=== PATIENT | female | born 2000 | race Caucasian/White ===

== ENCOUNTER 2023-10-02 01:49 | Emergency (ER) | payer OTHER, SELFPAY ==
[2023-10-02 02:03] VITALS: BP 136/81; BP 142/84; PULSE 116; PULSE 127; RESP 12; TEMP 36.4; O2SAT 100; O2SAT 96; BMI 32.9
--- NOTE | 2023-10-02 02:17 | PC.NURSE ---
hx of seizures/epilepsy. last episode was 1 week ago. not on medication currently. VSS at this time. pt reports feeling tired and shaky. worried she will have a seizure. pads placed on the bed for precaution.
[2023-10-02 02:34] VITALS: BP 136/81; PULSE 127; RESP 12; TEMP 36.4; O2SAT 96
--- NOTE | 2023-10-02 02:36 | ED_ITS ---
HPI - General Adult General Chief complaint: ETOH/Substance Use Stated complaint: Drug Use Time Seen by Provider: 10/02/23 02:30 Source: patient Mode of arrival: EMS Limitations: no limitations History of Present Illness HPI narrative: Patient comes to the emergency room complaining of feeling strange. Patient states that she was a smoking marijuana, states that she believes that her marijuana was laced with something. Patient was not given any Narcan. Patient feeling nauseous. Patient denies losing consciousness, no falls, no vomiting or diarrhea. Patient has history of seizures, last seizure 1 week ago. Patient is not sure if she had a seizure today. Patient is not on any medications for seizures. Related Data Allergies Allergy/AdvReac Type Severity Reaction Status Date / Time No Known Allergies Allergy Unverified 08/17/20 17:00 [No Known Allergies*] Review of Systems 2 Review of Systems: Constitutional : No Weight loss, No Fever, No Chills, No Night Sweats, No Fatigue, No Malaise ENT/Mouth : No Hearing loss, No Ear Pain, No Nasal Congestion, No Sinus Pain, No Hoarseness, No sore throat, No Rhinorrhea, No Swallowing Difficulty Eyes: No Eye Pain, No Swelling, No Redness, No Foreign Body, No Discharge, No Vision Changes Cardiovascular : No Chest Pain, No SOB, No Dyspnea on Exertion, No Orthopnea, No Edema, No Palpitations Respiratory : No Cough, No Sputum, No Wheezing, No Smoke Exposure, No Dyspnea Gastrointestinal : No Nausea, No Vomiting, No Diarrhea, No Constipation, No abdominal Pain, No Hematochezia, No Melena Genitourinary : no irregular bleeding, No Dysuria, No Urinary Frequency, No Hematuria, No Urinary Incontinence, No Urgency, No Flank Pain, No Urinary Flow Changes, No Hesitancy Musculoskeletal : No joint pain, No Myalgias, No Joint Swelling Skin : No Skin Lesions, No rash Neuro : No Weakness, No Numbness, No Paresthesias, No Loss of Consciousness, No Dizziness, No Headache Psych : No Anxiety/Panic, No Depression, No SI/HI/AH/VH, admits to smoking marijuana, states that she may have he smoked placed THC Heme/Lymph: No Bruising, No Bleeding,No Lymphadenopathy Endocrine : No Polyuria, No Polydipsia, No Temperature Intolerance [facility], [facility] Past Medical History Medical History (Updated 10/02/23 @ 04:25 by Vanesa Izquierdo MD) Epilepsy Social History Social History Alcohol intake: current Alcohol intake frequency: a few times a month Smoked in Last 30 Days: Yes Use of substances other than those prescribed or required for medical reasons: Yes Substance Use Type: Crack/Cocaine and Marijuana Substance Use Frequency: Daily Last Used Substance: Hours (ago) Advance Directives: No Advance Directives Information Provided: Yes Physical Exam ED Vital Signs: Vital Signs - 24 hr 10/02/23 02:03 10/02/23 02:34 Temperature 97.5 F 97.5 F Pulse Rate 127 H 127 H Respiratory Rate 12 12 Blood Pressure 136/81 136/81 Pulse Oximetry 96 96 Oxygen Delivery Method Room Air Room Air BMI result Body Mass Index 32.9 Const Other: Appearance: Alert. Somnolent, easily arousable, coherent, No acute distress. Eyes: Pupils equal, round and reactive to light. ENT: Pharynx normal. Neck: Normal inspection. Neck supple. No lymph nodes noted. No crepitus CVS: Normal heart rate and rhythm. Pulses normal. Normal S1 and S2 Respiratory: No respiratory distress. Breath sounds normal. No Wheezing. No rales Abdomen: Soft and nontender. No rigidity. No distention. Skin: Skin warm and dry. Normal skin color. Normal skin turgor. Extremities: No lower extremity edema. No Lacerations. No Rash Neuro: Somnolent, cranial nerves 2-12 grossly intact. Psych: calm, cooperative, normal affect Course Course Course Narrative: -is possible that the patient may have smoked laced THC vs had a seizure? Labs pending -patient stable, vital stable Medications Administered Discontinued Medications Generic Name Dose Route Start Last Admin Trade Name Neelam PRN Reason Stop Dose Admin Ondansetron HCl 4 mg 10/02/23 02:39 10/02/23 02:57 Ondansetron Odt 4 Mg Tab.Rapdis TRANSLINGU 10/02/23 02:40 4 mg ONCE ONE Administration Medical Decision Making Medical Decision Making [facility] Narrative: -my interpretation of labs, elevated white blood cell count, likely reactive leukocytosis. Chemistry within normal limits, lactic acid normal. Urine test negative, toxicology positive for opiates, fentanyl, cocaine and marijuana. -patient is awake, alert and oriented x3. Patient requesting to be discharged. Discussed with the patient to follow-up with her neurologist. Differential Diagnosis Differential Diagnoses: The differential diagnosis associated with the presentation includes (Seizure, accidental overdose, polysubstance abuse) Lab Data MDM Lab Attestation statement: I reviewed the patient's lab results. 10/02/23 02:52 10/02/23 02:52 Labs: Lab Results 10/02/23 10/02/23 Range/Units 02:52 03:57 WBC 18.5 H (4.8-10.8) X10*3/uL RBC 4.33 (4.20-5.50) X10*6/uL Hgb 12.1 (12.0-16.0) g/dl Hct 36.8 L (37.0-47.0) % MCV 85.0 (80.0-98.0) fL MCH 27.9 (27.0-33.0) pg MCHC 32.9 (31.0-35.0) g/dl RDW 13.2 (11.0-16.0) % Plt Count 446 H (160-400) X10*3/uL MPV 9.8 (9.4-12.3) fL Immature Gran % (Auto) 0.4 (0.0-0.4) % Neut % (Auto) 88.6 H (45-73) % Lymph % (Auto) 5.3 L (20-40) % [place] % (Auto) 5.2 (2-11) % Eos % (Auto) 0.2 (0-4) % Baso % (Auto) 0.3 (0-2) % Lymph # (Auto) 1.0 L (1.2-4.9) X10*3/uL [place] # (Auto) 1.0 (0.1-1.2) X10*3/uL Eos # (Auto) 0.0 (0.0-0.4) X10*3/uL Baso # (Auto) 0.1 (0.0-0.2) X10*3/uL Abs Immat Gran (auto) 0.08 H (0.00-0.03) X10*3/uL Absolute Neuts (auto) 16.4 H (2.0-8.3) x10*3/uL Absolute Nucleated RBC 0.000 (0.0-0.012) X10*3/uL Nucleated RBC % (auto) 0.0 (0.0-0.2) /100WBC Sodium 135 (135-145) mmol/L Potassium 3.7 (3.3-5.1) mmol/L Chloride 101 (96-108) mmol/L Carbon Dioxide 24 (22-29) mmol/L Anion Gap 14 (12-20) BUN 11 (9-16) mg/dL Creatinine 0.77 (0.5-1.4) mg/dL Estim Creat Clear Calc 114.4 Estimated GFR > 60 Random Glucose 170 H (60-115) mg/dL Lactic Acid 0.8 (0.5-2.0) mmol/L Calcium 9.1 (8.4-10.2) mg/dL Total Bilirubin 0.2 (0.0-1.0) mg/dL Direct Bilirubin 0.2 (0.0-0.5) mg/dL AST 18 (5-31) U/L ALT 9 (0-31) U/L Alkaline Phosphatase 88 (39-117) U/L Total Protein 7.9 (6.5-8.0) g/dL Albumin 4.2 (3.5-5.0) g/dL Urine Test NEGATIVE (NEGATIVE) Urine Opiates Screen POSITIVE H (Not Detect) Urine Fentanyl Screen POSITIVE H (Not Detect) Ur Barbiturates Screen Not Detected (Not Detect) Ur Phencyclidine Scrn Not Detected (Not Detect) Ur Amphetamines Screen Not Detected (Not Detect) U Benzodiazepines Scrn Not Detected (Not Detect) Urine Cocaine Screen POSITIVE H (Not Detect) U Marijuana (THC) Screen POSITIVE H (Not Detect) Discharge Plan Discharge Clinical Impression: Polysubstance abuse Patient Disposition: Home, Self-Care Instructions: Polysubstance Abuse (ED) Additional Instructions: Please follow-up with your primary care physician tomorrow. If you have any worsening or new symptoms, please return to the emergency room or call 911
[2023-10-02 02:56] LABS: MANUAL DIFF FLAG NO
[2023-10-02] MEDS: Ondansetron ODT 4 MG TAB.RAPDIS TRANSLINGU (02:57)
[2023-10-02 02:58] LABS: Basophils Absolute Auto 0.1 X10*3/uL (0.0-0.2); Basophils Percent Auto 0.3 % (0-2); Eosinophils Percent Auto 0.2 % (0-4); Hematocrit 36.8 % (37.0-47.0); Hemoglobin 12.1 g/dl (12.0-16.0); Imm Gran Abs Auto 0.08 X10*3/uL (0.00-0.03); Imm Gran Pct Auto 0.4 % (0.0-0.4); Lymphocytes Percent Auto 5.3 % (20-40); Mean Corpuscular HGB Conc 32.9 g/dl (31.0-35.0); Mean Corpuscular Hemoglobin 27.9 pg (27.0-33.0); Mean Platelet Volume 9.8 fL (9.4-12.3); Monocytes Percent Auto 5.2 % (2-11); Neutrophils Absolute Auto 16.4 x10*3/uL (2.0-8.3); Neutrophils Percent Auto 88.6 % (45-73); Platelet Count 446 X10*3/uL (160-400); Red Blood Count 4.33 X10*6/uL (4.20-5.50); Red Cell Distribution Width 13.2 % (11.0-16.0); White Blood Count 18.5 X10*3/uL (4.8-10.8)
[2023-10-02 03:06] LABS: Lactic Acid 0.8 mmol/L (0.5-2.0)
[2023-10-02 03:11] LABS: Alanine Aminotransferase 9 U/L (0-31); Albumin Level 4.2 g/dL (3.5-5.0); Alkaline Phosphatase 88 U/L (39-117); Anion Gap 14 (12-20); Aspartate Amino Transferase 18 U/L (5-31); Bilirubin Direct 0.2 mg/dL (0.0-0.5); Bilirubin Total 0.2 mg/dL (0.0-1.0); Blood Urea Nitrogen 11 mg/dL (9-16); Calcium 9.1 mg/dL (8.4-10.2); Carbon Dioxide 24 mmol/L (22-29); Chloride 101 mmol/L (96-108); Creatinine Clr Calc Pharmacy 114.4; Estimated Glomerular Filt Rate > 60; Glucose Random 170 mg/dL (60-115); Potassium 3.7 mmol/L (3.3-5.1); Sodium 135 mmol/L (135-145); Total Protein 7.9 g/dL (6.5-8.0)
[2023-10-02 04:08] LABS: UPreg QC Valid YES; Urine Pregnancy NEGATIVE (NEGATIVE)
[2023-10-02 04:12] LABS: Amphetamine Screen Urine Not Detected (Not Detect); Barbiturates, Urine Not Detected (Not Detect); Benzodiazepines Screen Urine Not Detected (Not Detect); Cannabinoid Screen Urine POSITIVE (Not Detect); Cocaine Screen Urine POSITIVE (Not Detect); Fentanyl, urine POSITIVE (Not Detect); Opiate Screen Urine POSITIVE (Not Detect); Phencyclidine Screen Urine Not Detected (Not Detect)
[2023-10-02 04:34] VITALS: BP 123/79; PULSE 116; RESP 13; O2SAT 99
== END 2023-10-02 04:47 | disposition home or self-care (01) ==
PROVIDERS: Emergency Provider Emergency Medicine
DX: F11.10 Opioid abuse, uncomplicated (principal); F14.10 Cocaine abuse, uncomplicated; Z71.51 Drug abuse counseling and surveillance of drug abuser; Z79.899 Other long term (current) drug therapy
CPT/HCPCS: 36415; 80048; 80076; 80307; 81025; 83605; 85025; 99284

== ENCOUNTER 2024-04-07 15:22 | Emergency (ER) | payer SELFPAY ==
[2024-04-07 15:40] VITALS: BP 128/86; PULSE 94; RESP 18; TEMP 37.1; O2SAT 99
--- NOTE | 2024-04-07 15:42 | ED.GENADULT ---
HPI - General Adult General Chief complaint: General Medical Stated complaint: possibly , vomiting Time Seen by Provider: 04/07/24 17:38 Source: patient Mode of arrival: ambulatory Limitations: no limitations History of Present Illness HPI narrative: 23-year-old female past medical history significant for recurrent nausea marijuana use and other drug use. She states she presents emergency department complaining of recurrent nausea. She states her last menstrual cycle was 9 weeks ago she has been having intermittent vomiting the past 3 weeks with stenosis going on she has never been before. She denies any other symptoms of knows she is in room and has nearly completed cobra her hand which she has been sipping while waiting for evaluation Related Data Allergies Allergy/AdvReac Type Severity Reaction Status Date / Time ofloxacin AdvReac Anxiety Verified 04/07/24 15:43 Review of Systems Review of Systems: Review of systems: General: Patient denies any fever chills recent illness or falls Musculoskeletal: Denies back pain or body aches or other injuries HEENT: denies headache, runny nose, ear pain Respiratory: denies shortness of breath, cough Cardiovascular: no chest pain or palpitations : denies dysuria, frequency Abdomen: no nausea vomiting denies abdominal pain Extremities: no swelling, no pain Skin: no diaphoresis Yes all other systems are reviewed and are negative PMFSH Past Medical History Medical History (Updated 04/07/24 @ 20:12 by Ross Carreon DO) Epilepsy Social History Social History Alcohol intake: current Alcohol intake frequency: a few times a month Substance Use Type: Crack/Cocaine and Marijuana Advance Directives: No Advance Directives Information Provided: No Do you have a plan to hurt others: No Plan Physical Exam ED Vital Signs: Vital Signs - 24 hr 04/07/24 15:40 Temperature 98.7 F Pulse Rate 94 Respiratory Rate 18 Blood Pressure 128/86 Pulse Oximetry 99 Oxygen Delivery Method Room Air BMI result Body Mass Index 30.0 General: Well-appearing well-nourished in no signs of distress HEENT: Normocephalic atraumatic Neck: No signs of JVD, no masses no tenderness or lymphadenopathy Cardiovascular: Regular rate and rhythm Respiratory: Clear to auscultation bilaterally Abdomen: Soft nontender no masses Extremities: Normal pedal pulses no signs of edema Skin: Dry warm no rashes Back: No tenderness full ROM Course Course Course Narrative: This is a Rapid Medical Examination (RME) performed by Bel Gutierrez PA-C in triage. Full HPI, ROS, assessment and treatment plan per primary provider in the Main ED. 23 year old female here w/ intermittent nausea, vomiting, and lower abdominal cramping x3 weeks. denies previous pregnancies. admits she is 5 weeks late for her period. LMP 01/15/24. Denies fevers, chills, dysuria, hematuria. abd soft, ND/NT. no cvat. Plan: labs, UA, u preg, viral serology ordered. Medical Decision Making Medical Decision Making [facility] Narrative: Patient is not labs all look normal I gave patient some Zofran send her home with Zoan have her follow up with her doctor Differential Diagnosis Differential Diagnoses: The differential diagnosis associated with the presentation includes Early nausea vomiting cannabis hyperemesis dehydration electrolyte abnormality Lab Data 04/07/24 16:16 04/07/24 16:16 Labs: Lab Results 04/07/24 Range/Units 16:16 WBC 5.9 (4.8-10.8) X10*3/uL RBC 4.39 (4.20-5.50) X10*6/uL Hgb 12.9 (12.0-16.0) g/dl Hct 38.1 (37.0-47.0) % MCV 86.8 (80.0-98.0) fL MCH 29.4 (27.0-33.0) pg MCHC 33.9 (31.0-35.0) g/dl RDW 12.7 (11.0-16.0) % Plt Count 346 (160-400) X10*3/uL MPV 10.7 (9.4-12.3) fL Immature Gran % (Auto) 0.2 (0.0-0.4) % Neut % (Auto) 45.7 (45-73) % Lymph % (Auto) 36.1 (20-40) % [place] % (Auto) 8.4 (2-11) % Eos % (Auto) 8.2 H (0-4) % Baso % (Auto) 1.4 (0-2) % Lymph # (Auto) 2.1 (1.2-4.9) X10*3/uL [place] # (Auto) 0.5 (0.1-1.2) X10*3/uL Eos # (Auto) 0.5 H (0.0-0.4) X10*3/uL Baso # (Auto) 0.1 (0.0-0.2) X10*3/uL Abs Immat Gran (auto) 0.01 (0.00-0.03) X10*3/uL Absolute Neuts (auto) 2.7 (2.0-8.3) x10*3/uL Absolute Nucleated RBC 0.000 (0.0-0.012) X10*3/uL Nucleated RBC % (auto) 0.0 (0.0-0.2) /100WBC Sodium 137 (135-145) mmol/L Potassium 3.9 (3.3-5.1) mmol/L Chloride 105 (96-108) mmol/L Carbon Dioxide 23 (22-29) mmol/L Anion Gap 13 (12-20) BUN 9 (9-16) mg/dL Creatinine 0.78 (0.5-1.4) mg/dL Estim Creat Clear Calc 124.9 Estimated GFR > 60 Random Glucose 101 (60-115) mg/dL Calcium 8.7 (8.4-10.2) mg/dL Magnesium 1.8 (1.6-2.6) mg/dL Total Bilirubin 0.3 (0.0-1.0) mg/dL AST 13 (5-31) U/L ALT 9 (0-31) U/L Alkaline Phosphatase 79 (39-117) U/L Total Protein 7.1 (6.5-8.0) g/dL Albumin 4.0 (3.5-5.0) g/dL Lipase 12 (8-78) U/L Beta HCG, Quant < 2 mIU/mL Urine Color Yellow Urine Appearance Clear Urine pH 6.5 (5.0-9.0) Ur Specific [place] >= 1.030 H (1.005-1.025) Urine Protein Trace (Neg-Trace) mg/dL Urine Glucose (UA) Negative (Negative) mg/dL Urine Ketones Trace (Negative) mg/dL Urine Blood Negative (Negative) Urine Nitrite Negative (Negative) Ur Leukocyte Esterase Negative (Negative) Urine Test NEGATIVE (NEGATIVE) Influenza Type A (PCR) NEGATIVE (Negative) Influenza Type B (PCR) NEGATIVE (Negative) RSV RNA Qual (PCR) NEGATIVE (Negative) SARS-CoV-2 RNA (RT-PCR) NEGATIVE (Negative) Discharge Plan Discharge Clinical Impression: Recurrent vomiting Patient Disposition: Home, Self-Care Instructions: Gastritis (DC), Diet for Stomach Ulcers and Gastritis (ED), Acute Nausea and Vomiting (ED) Additional Instructions: You seen in the emergency department for recurrent vomiting and because you are worried that you could be You had labs done which showed everything was normal. There is an association with marijuana and recurrent vomiting. We do recommend stopping smoking marijuana. We do know that most people that here this message do not want to stop smoking marijuana. This is something we do see regularly in the ER. This can happen any time in your cycle even if you been smoking for years. We do not know why some people are affected and others are not. Please call follow-up with your doctor as needed. Print Language: Swazi
[2024-04-07 16:21] LABS: MANUAL DIFF FLAG NO
[2024-04-07 16:25] LABS: Appearance Urine Clear; Basophils Absolute Auto 0.1 X10*3/uL (0.0-0.2); Basophils Percent Auto 1.4 % (0-2); Color Urine Yellow; Eosinophils Absolute Auto 0.5 X10*3/uL (0.0-0.4); Eosinophils Percent Auto 8.2 % (0-4); Glucose Urine UA Negative (Negative); Hematocrit 38.1 % (37.0-47.0); Hemoglobin 12.9 g/dl (12.0-16.0); Imm Gran Abs Auto 0.01 X10*3/uL (0.00-0.03); Imm Gran Pct Auto 0.2 % (0.0-0.4); Leukocyte Esterase Urine Negative (Negative); Lymphocytes Absolute Auto 2.1 X10*3/uL (1.2-4.9); Lymphocytes Percent Auto 36.1 % (20-40); Mean Corpuscular HGB Conc 33.9 g/dl (31.0-35.0); Mean Corpuscular Hemoglobin 29.4 pg (27.0-33.0); Mean Corpuscular Volume 86.8 fL (80.0-98.0); Mean Platelet Volume 10.7 fL (9.4-12.3); Monocytes Absolute Auto 0.5 X10*3/uL (0.1-1.2); Monocytes Percent Auto 8.4 % (2-11); Neutrophils Absolute Auto 2.7 x10*3/uL (2.0-8.3); Neutrophils Percent Auto 45.7 % (45-73); Nitrite Urine Negative (Negative); PH 6.5 (5.0-9.0); Platelet Count 346 X10*3/uL (160-400); Red Blood Count 4.39 X10*6/uL (4.20-5.50); Red Cell Distribution Width 12.7 % (11.0-16.0); Specific Gravity - Urine >= 1.030 (1.005-1.025); Urine Blood Negative (Negative); Urine Ketones Trace mg/dL (Negative); Urine Protein Trace mg/dL (Neg-Trace); White Blood Count 5.9 X10*3/uL (4.8-10.8)
[2024-04-07 16:27] LABS: UPreg QC Valid YES; Urine Pregnancy NEGATIVE (NEGATIVE)
[2024-04-07 16:52] LABS: Alanine Aminotransferase 9 U/L (0-31); Alkaline Phosphatase 79 U/L (39-117); Anion Gap 13 (12-20); Aspartate Amino Transferase 13 U/L (5-31); Bilirubin Total 0.3 mg/dL (0.0-1.0); Blood Urea Nitrogen 9 mg/dL (9-16); Calcium 8.7 mg/dL (8.4-10.2); Carbon Dioxide 23 mmol/L (22-29); Chloride 105 mmol/L (96-108); Creatinine Clr Calc Pharmacy 124.9; Estimated Glomerular Filt Rate > 60; Glucose Random 101 mg/dL (60-115); Lipase 12 U/L (8-78); Magnesium 1.8 mg/dL (1.6-2.6); Potassium 3.9 mmol/L (3.3-5.1); Sodium 137 mmol/L (135-145); Total Protein 7.1 g/dL (6.5-8.0)
[2024-04-07 17:01] LABS: HCG Quantitative < 2 mIU/mL
[2024-04-07 18:46] LABS: Influenza A PCR NEGATIVE (Negative); Influenza B PCR NEGATIVE (Negative); Resp Syncy Virus RNA Qual PCR NEGATIVE (Negative); SARS COV2 PCR INHOUSE NEGATIVE (Negative)
[2024-04-07 20:19] VITALS: BP 104/57; PULSE 80; RESP 20; TEMP 36.7; O2SAT 98
[2024-04-07 20:46] VITALS: BP 0/0; PULSE 0; RESP 0; TEMP -17.7; TEMP 0; O2SAT 0
== END 2024-04-07 20:47 | disposition home or self-care (01) ==
PROVIDERS: Physician Assistant Medical; Emergency Provider Student in an Organized Health Care Education/Training Program
DX: R11.2 Nausea with vomiting, unspecified (principal); R10.2 Pelvic and perineal pain; Z03.818 Encounter for observation for suspected exposure to other biological agents ruled out; Z79.899 Other long term (current) drug therapy
CPT/HCPCS: 0241U; 36415; 80053; 81003; 81025; 83690; 83735; 84702; 85025; 99283

== ENCOUNTER 2024-04-22 22:39 | Emergency (ER) | payer MEDICAID, SELFPAY ==
[2024-04-22 22:47] VITALS: BP 125/80; PULSE 102; RESP 20; TEMP 36.6; O2SAT 100; BMI 35.1
--- NOTE | 2024-04-23 00:19 | ED_ITS ---
HPI - Allergic Reaction General Chief complaint: Allergic Reaction Stated complaint: rash on face, arms, and legs Time Seen by Provider: 04/23/24 00:12 Source: patient Mode of arrival: ambulatory Limitations: no limitations History of Present Illness ED Provider: DR. 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 No change in voice, no difficulty breathing, no difficulty swallowing. Patient stated that her menstrual cycle is late about 90 days with chance of being patient took multiple home test were all negative. Related Data Previous Rx's ?Medication ?Instructions ?Recorded prednisone 20 mg tablet 20 mg PO BID #10 tabs 04/23/24 Allergies Allergy/AdvReac Type Severity Reaction Status Date / Time ofloxacin AdvReac Anxiety Verified 04/22/24 22:50 Review of Systems Review of Systems: All other systems are reviewed and are negative Constitutional: Reports as per HPI and Reports no additional constitutional complaints Eyes: Reports as per HPI and Reports no additional eye complaints Reports system reviewed and no additional complaints, except as documented Cardiovascular: Reports as per HPI and Reports no additional cardiovascular complaints Respiratory: Reports as per HPI and Reports no additional respiratory complaints Gastrointestinal: Reports as per HPI and Reports no additional gastrointestinal complaints Genitourinary: Reports no additional female genitourinary complaints Musculoskeletal: Reports no additional musculoskeletal complaints Skin/Breast: Reports system reviewed and no additional complaints, except as docu Psychiatric: Reports no additional psychiatric complaints Endocrine: Reports no additional endocrine complaints Hematologic/Lymphatic: Reports no additional hematologic/lymphatic complaints Allergic/Immunologic: Reports no additional allergic/immunologic complaints Reports system reviewed and no additional complaints, except as documented and Reports Abnormal speech present [facility] Past Medical History Medical History Epilepsy Social History Social History Alcohol intake: current Alcohol intake frequency: a few times a month Substance Use Type: Crack/Cocaine and Marijuana Advance Directives: No Advance Directives Information Provided: Yes Do you have a plan to hurt others: No Plan Physical Exam ED Vital Signs: Vital Signs - 24 hr 04/22/24 22:47 04/23/24 00:49 04/23/24 01:48 Temperature 97.9 F Pulse Rate 102 H 116 H 85 Respiratory Rate 20 20 16 Blood Pressure 125/80 127/81 135/70 Pulse Oximetry 100 99 100 Oxygen Delivery Method Room Air Room Air Room Air BMI result Body Mass Index 35.1 Vital signs have been reviewed and appear to be correct. Blood pressure elevated. Heart rate normal. Respiratory rate normal. Temperature normal. Ox ygen saturation normal. Appearance: Alert. Oriented X3. No acute distress. Head: Normal external exam. Normocephalic. Atraumatic. No Awad signs noted. No raccoon eyes noted Eyes: PERRLA. EOMI. Conjunctiva and sclera normal. Eyelids normal. ENT: TM's Normal. Pharynx normal. Uvula midline. Moist mucous membranes. No trismus noted. No drooling noted. No muffled voice noted, patent airway, no stridor. Neck: Normal inspection. Neck supple. FROM. No adenopathy. Thyroid Normal. No meningeal signs. No neck mass noted. CVS: Normal heart rate and rhythm. Heart sound normal. No murmurs noted. Pulses normal throughout. Respiratory: No respiratory distress. Painless inspiration. Breath sounds normal. No wheezes/rales/rhonchi noted. Chest nontender. No accessory muscle usage noted or decreased air movement noted. Abdomen: Soft and nontender. Bowel sounds normal in all 4 quadrants. No distention noted. No organomegaly noted. No visible injury noted. Back: No CVA tenderness. Full range of motion noted. Skin: Diffuse hives to 4 extremities, and face. Extremities: No lower extremity edema. Extremities exhibit normal range of motion. Extremities nontender. Neuro: Oriented X 3. Cranial nerve exam: II-XII are grossly intact No motor deficit. No sensory deficit. Reflexes normal. Course Reevaluation(s) Reevaluation #1: Patient feels better, less itchy, hives is fading away. Will start the patient on short course of prednisone. Avoid exposing to the offending agent. Negative serum hCG test discussed with the patient. Time: 02:49 Medications Administered Discontinued Medications Generic Name Dose Route Start Last Admin Trade Name Neelam PRN Reason Stop Dose Admin Diphenhydramine HCl 50 mg 04/23/24 00:18 04/23/24 01:11 Diphenhydramine Hcl 50 Mg/Ml Vial IVPUSH 04/23/24 00:19 50 mg ONCE ONE Administration Famotidine 20 mg 04/23/24 00:18 04/23/24 01:11 Famotidine/Pf 20 Mg/2 Ml Vial IVPUSH 04/23/24 00:19 20 mg ONCE ONE Administration Sodium Chloride 1,000 mls @ 999 mls/hr 04/23/24 00:18 04/23/24 00:34 Ns IV 04/23/24 01:18 999 mls/hr .Q1H1M ONE Administration Methylprednisolone Sodium Succinate 125 mg 04/23/24 00:18 04/23/24 01:11 Methylprednisolone Sod Succ 125 Mg/2 Ml Vial IVPUSH 04/23/24 00:19 125 mg ONCE ONE Administration Medical Decision Making Differential Diagnosis Differential Diagnoses: The differential diagnosis associated with the presentation includes (Hives, anaphylaxis) Admission/Observation Consideration of admission/observation: Escalation of care including admission/observation considered Lab Data MDM Lab Attestation statement: I reviewed the patient's lab results. Labs: Lab Results 04/23/24 Range/Units 00:40 Beta HCG, Quant < 2 mIU/mL Discharge Plan Discharge Clinical Impression: Allergic reaction Patient Disposition: Home, Self-Care Instructions: General Allergic Reaction (ED) Prescriptions: New prednisone 20 mg tablet 20 mg PO BID Qty: 10 0RF Stand Alone Forms: Work/School Release Print Language: Hebrew
[2024-04-23] MEDS: 0.9 % Sodium Chloride 1,000 ML 999 ML IV (00:34)
[2024-04-23 00:49] VITALS: BP 127/81; PULSE 116; RESP 20; O2SAT 99
[2024-04-23 01:07] LABS: HCG Quantitative < 2 mIU/mL
[2024-04-23] MEDS: diphenhydrAMINE HCL 50 MG/ML VIAL IVPUSH (01:11)
[2024-04-23] MEDS: Famotidine/PF 20 MG/2 ML VIAL IVPUSH (01:11)
[2024-04-23] MEDS: methylPREDNISolone Sod Succ 125 MG/2 ML VIAL IVPUSH (01:11)
[2024-04-23 01:48] VITALS: BP 135/70; PULSE 85; RESP 16; O2SAT 100
[2024-04-23 03:05] VITALS: BP 135/70; PULSE 85; RESP 16; TEMP 36.2; O2SAT 100
== END 2024-04-23 03:07 | disposition home or self-care (01) ==
PROVIDERS: Emergency Provider Emergency Medicine
DX: L23.9 Allergic contact dermatitis, unspecified cause (principal); R21 Rash and other nonspecific skin eruption
CPT/HCPCS: 36415; 84702; 96361; 96374; 96375; 99284; J1200; J2919

== ENCOUNTER 2024-04-26 23:50 | Emergency (ER) | payer MEDICAID, SELFPAY ==
[2024-04-26 23:53] VITALS: BP 121/85; PULSE 96; RESP 17; TEMP 36.5; O2SAT 98; BMI 35.0
--- NOTE | 2024-04-27 00:36 | ED.GENADULT ---
HPI - General Adult General Chief complaint: Allergic Reaction Stated complaint: Body Rash Time Seen by Provider: 04/27/24 00:35 History of Present Illness HPI narrative: The patient is a 23-year-old female who was seen in the emergency room 4 days ago for an allergic reaction. At the time the patient had developed allergic symptoms after an incident at work. 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 Some of the powder got on her skin and it was felt that this may have been a trigger an allergic reaction. At that visit the patient received IV diphenhydramine, IV famotidine, and IV methylprednisolone and was ultimately discharged on a course of prednisone, 20 mg b.i.d. x5 days. The patient says that her rash has been getting better. Her last day of the prescribed prednisone was to be tomorrow. Tonight however she felt the rash looked much worse, especially on her face. The patient denies any shortness of breath but says that she is having some difficulty swallowing. Related Data Previous Rx's ?Medication ?Instructions ?Recorded prednisone 20 mg tablet 20 mg PO BID #10 tabs 04/23/24 cetirizine 10 mg tablet 10 mg PO DAILY PRN allergy 04/27/24 symptoms #10 tabs Allergies Allergy/AdvReac Type Severity Reaction Status Date / Time ofloxacin AdvReac Anxiety Verified 04/26/24 23:58 Review of Systems Review of Systems: Yes all other systems are reviewed and are negative PMFSH Past Medical History Medical History Epilepsy Social History Social History Alcohol intake: current Alcohol intake frequency: does not drink Smoked in Last 30 Days: Yes Use of substances other than those prescribed or required for medical reasons: No Substance Use Type: Crack/Cocaine and Marijuana Advance Directives: No Advance Directives Information Provided: Yes Do you have a plan to hurt others: No Plan Patient : No Physical Exam ED Vital Signs: Vital Signs - 24 hr 04/26/24 23:53 04/27/24 01:01 Temperature 97.7 F Pulse Rate 96 82 Respiratory Rate 17 Blood Pressure 121/85 114/74 Pulse Oximetry 98 Oxygen Delivery Method Room Air BMI result Body Mass Index 35.0 Const Other: The patient is awake and alert. She has not appear in acute distress. She has a rash on her face and to a lesser extent in her arms and legs. There is no respiratory difficulty. Speech sounds clear. HENMT Other: There is an erythematous, irregular rash on much of the patient's face. There is no intraoral mucosal abnormality. There is no intraoral swelling. Eyes Other: Pupils are round equal, conjunctivae are clear, extraocular movements intact. Neck Other: No stridor Resp Effort & Inspection: normal respiratory effort Auscultation: clear to auscultation bilaterally Cardio Rate: regular rate Rhythm: regular rhythm Heart sounds: S1 normal heart sound present and S2 normal heart sound present GI Other: Abdomen is soft and nontender Skin Other: The patient has an unusual rash on the face. There are irregular raised erythematous lesions which could be unusual hives. There are also some scattered hive-like lesions on the extremities. Neuro Other: The patient is awake and alert with a normal mental status. Cranial nerves are grossly intact. She moves her extremities normally and seems grossly neurologically intact. Extrem Other: The patient has some skin lesions on the extremities. No edema. Medications Administered Discontinued Medications Generic Name Dose Route Start Last Admin Trade Name Freq PRN Reason Stop Dose Admin Epinephrine 0.3 mg 04/27/24 00:48 04/27/24 01:01 Epinephrine 1 Mg/Ml Vial IM 04/27/24 00:49 0.3 mg STAT STA Administration Medical Decision Making Medical Decision Making [facility] Narrative: The patient is a 23-year-old who is on her 4th day of prednisone for an allergic reaction. Tonight her facial rash looked worse since she thought she was having a worsening reaction. We checked some labs which are unremarkable (she has a high white count which I attribute to prednisone, her CRP is normal). She was given an EpiPen with no significant change in the appearance of her facial manifestations. I then asked her to repeat the history. She told me on the 2nd telling that the worsening appearance of her face occurred after she had had an episode of nausea and vomited fairly forcefully. This makes me think that the patient has facial appearance has more to do with possible burst blood vessels from the force of vomiting than a worsening of her allergic reaction. She was reassured. She looks well enough for discharge. She will be prescribed cetirizine because she does have ongoing itchiness on her limbs. The patient is encouraged to get a primary care doctor. Lab Data 04/27/24 00:59 04/27/24 00:59 Labs: Lab Results 04/27/24 Range/Units 00:59 WBC 19.3 H (4.8-10.8) X10*3/uL RBC 4.38 (4.20-5.50) X10*6/uL Hgb 12.9 (12.0-16.0) g/dl Hct 37.2 (37.0-47.0) % MCV 84.9 (80.0-98.0) fL MCH 29.5 (27.0-33.0) pg MCHC 34.7 (31.0-35.0) g/dl RDW 12.5 (11.0-16.0) % Plt Count 409 H (160-400) X10*3/uL MPV 10.5 (9.4-12.3) fL Immature Gran % (Auto) 0.6 H (0.0-0.4) % Neut % (Auto) 84.4 H (45-73) % Lymph % (Auto) 8.5 L (20-40) % [place] % (Auto) 5.8 (2-11) % Eos % (Auto) 0.4 (0-4) % Baso % (Auto) 0.3 (0-2) % Lymph # (Auto) 1.7 (1.2-4.9) X10*3/uL [place] # (Auto) 1.1 (0.1-1.2) X10*3/uL Eos # (Auto) 0.1 (0.0-0.4) X10*3/uL Baso # (Auto) 0.1 (0.0-0.2) X10*3/uL Abs Immat Gran (auto) 0.12 H (0.00-0.03) X10*3/uL Absolute Neuts (auto) 16.3 H (2.0-8.3) x10*3/uL Absolute Nucleated RBC 0.000 (0.0-0.012) X10*3/uL Nucleated RBC % (auto) 0.0 (0.0-0.2) /100WBC Sodium 140 (135-145) mmol/L Potassium 3.8 (3.3-5.1) mmol/L Chloride 105 (96-108) mmol/L Carbon Dioxide 27 (22-29) mmol/L Anion Gap 12 (12-20) BUN 8 L (9-16) mg/dL Creatinine 0.74 (0.5-1.4) mg/dL Estim Creat Clear Calc 122.9 Estimated GFR > 60 Random Glucose 94 (60-115) mg/dL Calcium 9.2 (8.4-10.2) mg/dL Total Bilirubin 0.2 (0.0-1.0) mg/dL Direct Bilirubin < 0.2 (0.0-0.5) mg/dL AST 10 (5-31) U/L ALT 8 (0-31) U/L Alkaline Phosphatase 78 (39-117) U/L C-Reactive Protein 0.27 (< or = 0.50) mg/dL Total Protein 7.1 (6.5-8.0) g/dL Albumin 4.0 (3.5-5.0) g/dL Beta HCG, Quant < 2 mIU/mL Discharge Plan Discharge Clinical Impression: Facial rash Patient Disposition: Home, Self-Care Additional Instructions: I think that the appearance of your face may look worse today because of the episode of vomiting you had. Sometimes when a person vomits with a lot of force there can be broken blood vessels in the face. I think this is probably more likely than a worsening of your allergic reaction. I would recommend finishing the course of prednisone as scheduled tomorrow. I have sent a prescription for medication called cetirizine to your pharmacy. This is a less sedating kind of antihistamine that might be helpful with the itching. Please work on getting a primary care doctor. I provided contact information of practices which might be useful. Return to the emergency room if significantly worse. Prescriptions: New cetirizine 10 mg tablet 10 mg PO DAILY PRN (Reason: allergy symptoms) Qty: 10 0RF No Action prednisone 20 mg tablet 20 mg PO BID Qty: 10 0RF Referrals: Melany Krause MD [Physician] - (Needs new primary care doctor) [facility]. Emre Kumar [Provider Group] (Needs primary care doctor) Print Language: [place]
[2024-04-27 01:01] VITALS: BP 114/74; PULSE 82
[2024-04-27] MEDS: EPINEPHrine 1 MG/ML VIAL 0.3 MG IM (01:01)
[2024-04-27 01:09] LABS: MANUAL DIFF FLAG NO
[2024-04-27 01:11] LABS: Basophils Absolute Auto 0.1 X10*3/uL (0.0-0.2); Basophils Percent Auto 0.3 % (0-2); Eosinophils Absolute Auto 0.1 X10*3/uL (0.0-0.4); Eosinophils Percent Auto 0.4 % (0-4); Hematocrit 37.2 % (37.0-47.0); Hemoglobin 12.9 g/dl (12.0-16.0); Imm Gran Abs Auto 0.12 X10*3/uL (0.00-0.03); Imm Gran Pct Auto 0.6 % (0.0-0.4); Lymphocytes Absolute Auto 1.7 X10*3/uL (1.2-4.9); Lymphocytes Percent Auto 8.5 % (20-40); Mean Corpuscular HGB Conc 34.7 g/dl (31.0-35.0); Mean Corpuscular Hemoglobin 29.5 pg (27.0-33.0); Mean Corpuscular Volume 84.9 fL (80.0-98.0); Mean Platelet Volume 10.5 fL (9.4-12.3); Monocytes Absolute Auto 1.1 X10*3/uL (0.1-1.2); Monocytes Percent Auto 5.8 % (2-11); Neutrophils Absolute Auto 16.3 x10*3/uL (2.0-8.3); Neutrophils Percent Auto 84.4 % (45-73); Platelet Count 409 X10*3/uL (160-400); Red Blood Count 4.38 X10*6/uL (4.20-5.50); Red Cell Distribution Width 12.5 % (11.0-16.0); White Blood Count 19.3 X10*3/uL (4.8-10.8)
[2024-04-27 01:32] LABS: Alanine Aminotransferase 8 U/L (0-31); Alkaline Phosphatase 78 U/L (39-117); Anion Gap 12 (12-20); Aspartate Amino Transferase 10 U/L (5-31); Bilirubin Direct < 0.2 mg/dL (0.0-0.5); Bilirubin Total 0.2 mg/dL (0.0-1.0); Blood Urea Nitrogen 8 mg/dL (9-16); C Reactive Protein 0.27 mg/dL (< or = 0.50); Calcium 9.2 mg/dL (8.4-10.2); Carbon Dioxide 27 mmol/L (22-29); Chloride 105 mmol/L (96-108); Creatinine Clr Calc Pharmacy 122.9; Estimated Glomerular Filt Rate > 60; Glucose Random 94 mg/dL (60-115); Potassium 3.8 mmol/L (3.3-5.1); Sodium 140 mmol/L (135-145); Total Protein 7.1 g/dL (6.5-8.0)
[2024-04-27 01:42] LABS: HCG Quantitative < 2 mIU/mL
[2024-04-27] MEDS: Loratadine 10 MG TABLET PO (02:16)
[2024-04-27 02:19] VITALS: BP 118/83; PULSE 84; RESP 16; TEMP 36.7; O2SAT 98
[2024-04-27 02:20] VITALS: BP 118/83; PULSE 84; RESP 16; TEMP 36.7; O2SAT 98
== END 2024-04-27 02:20 | disposition home or self-care (01) ==
PROVIDERS: Emergency Provider Emergency Medicine
DX: R21 Rash and other nonspecific skin eruption (principal); R11.10 Vomiting, unspecified
CPT/HCPCS: 36415; 80048; 80076; 84702; 85025; 86140; 96372; 99284; J0171

== ENCOUNTER 2025-03-02 02:37 | Emergency (ER) | payer SELFPAY ==
[2025-03-02 02:38] VITALS: BP 141/82; PULSE 115; RESP 18; TEMP 36.8; O2SAT 99; BMI 27.4
--- NOTE | 2025-03-02 03:05 | PC.NURSE ---
pt sat on stretcher in 16H for 4 minutes, then left with mechanism inspector. did not state why
--- NOTE | 2025-03-02 03:22 | PC.NURSE ---
patient brought back to [facility]. patient accompanied by a male. male came in and spoke with patient and then both were seen leaving the ED, used the bathroom in waiting room and walked off camera outside. patient was not seen by provider.
== END 2025-03-02 03:34 | disposition left against medical advice (07) ==
PROVIDERS: Emergency Provider Emergency Medicine
DX: R20.0 Anesthesia of skin (principal)
CPT/HCPCS: 99281